=== PATIENT | female | born 1975 | race Caucasian/White ===

== ENCOUNTER 2016-11-04 15:28 | Emergency (ER) | payer OTHER ==
[~2016-11-04] VITALS: Ht 162.6 cm; Wt 68.6 kg
[2016-11-04 16:04] VITALS: BP 164/94
== END 2016-11-04 16:09 | disposition home or self-care (01) ==
LOC: EME 15:28
DX: Z02.83 Encounter for blood-alcohol and blood-drug test (principal); S50.811A Abrasion of right forearm, initial encounter; V48.0XXA Car driver injured in noncollision transport accident in nontraffic accident, initial encounter; Y99.0 Civilian activity done for income or pay; F17.200 Nicotine dependence, unspecified, uncomplicated
CPT/HCPCS: 99281; 99283